=== PATIENT | male | born 1960 | race Asian ===

== ENCOUNTER 2022-09-10 08:14 | Emergency (ER) | payer MEDICAID ==
[~2022-09-10] VITALS: Ht 180.3 cm; Wt 99.8 kg
--- NOTE | 2022-09-10 08:14 | NUR ---
BROUGHT BACK TO BED #4 AND TRIAGED. WILL ASSUME CARE
[2022-09-10 08:15] VITALS: BP_SYST 151
[2022-09-10] MEDS ORDERED: MORPHINE 4 MG INJ. 4 MG/ML VIAL IVP ONE (08:30)
[2022-09-10] MEDS ORDERED: NITROGLYCERIN 1 INCH (GM) OINT. TP ONE (08:30)
--- NOTE | 2022-09-10 08:30 | NUR ---
PT BIB SON FROM HOME C/O NON RADIATING THROBBING ACHEING CHEST PAIN 12/22 AT 0630 THIS AM. PT DENIES H/V/N. PT STATES NO PRIOR MEDICAL HISTORY. PT RESTING IN BED VSS
--- NOTE | 2022-09-10 08:35 | NUR ---
ER at bedside examining patient.
[2022-09-10] MEDS ORDERED: ASPIRIN 325 MG TABLET PO ONE (08:45)
[2022-09-10 08:58] LABS: BASOPHILS % (AUTO) 0.8 % (0.0-2.0); EOSINOPHILS # (AUTO) 0.2 K/uL (0.0-0.4); EOSINOPHILS % (AUTO) 4.1 % (0.0-4.0); HEMATOCRIT 44.9 % (36-54); HEMOGLOBIN 15.2 g/dL (14.0-18.0); LYMPHOCYTES # (AUTO) 2.5 K/uL (1.0-5.5); LYMPHOCYTES % (AUTO) 44.8 % (20.5-51.5); MEAN CORPUSCULAR HEMOGLOBIN 29 pg (27-31); MEAN CORPUSCULAR HGB CONC 34 % (32-36); MEAN CORPUSCULAR VOLUME 87 fL (79.0-98.0); MONOCYTES # (AUTO) 0.6 K/uL (0.0-1.0); MONOCYTES % (AUTO) 10.1 % (1.7-9.3); NEUTROPHILS # (AUTO) 2.3 K/uL (1.8-7.7); NEUTROPHILS % (AUTO) 40.2 % (40.0-70.0); PLATELET COUNT (AUTO) 273 K/uL (130-430); RED BLOOD CELL COUNT(AUTO) 5.19 MIL/uL (4.2-6.2); RED CELL DISTRIBUTION WIDTH 14.3 % (9.0-15.0); WHITE BLOOD COUNT (AUTO) 5.7 K/uL (4.8-10.8)
[2022-09-10 09:29] LABS: ANION GAP 4 (5-15); CALCIUM 9.4 mg/dL (8.4-11.0); CHLORIDE 101 mmol/L (98-107); CREATININE 1.34 mg/dL (0.55-1.30); GFR AFRICAN AMERICAN 69 mL/min (>90); GLUCOSE 104 mg/dL (70-99); UREA NITROGEN, BLOOD 18 mg/dL (8-21)
[2022-09-10 09:36] LABS: ALANINE AMINOTRANSFERASE 72 U/L (12-78); ALBUMIN 3.8 g/dL (3.4-4.8); ASPARTATE AMINOTRANSFERASE 68 U/L (10-37); PROTHROMBIN TIME 10.4 SECS (9.5-12.5); TOTAL BILIRUBIN 0.5 mg/dL (0.0-1.0)
--- NOTE | 2022-09-10 09:50 | NUR ---
RESTING QUIETLY, NO CHANGES
[2022-09-10] MEDS ORDERED: SIMV-345 PO (10:35)
[2022-09-10] MEDS ORDERED: TELM40TA2 PO (10:42)
[2022-09-10 11:07] VITALS: BP_SYST 152
--- NOTE | 2022-09-10 11:09 | NUR ---
Patient given written and verbal discharge instructions and verbalizes understanding. ER MD discussed with patient the results and treatment provided. Patient in stable condition. ID arm band removed. IV catheter removed intact and dressing applied, no active bleeding. Rx of SIMVASTATIN given. Patient educated on CHEST PAIN OBSERVATION and to follow up with PMD. Pain Scale 4. Opportunity for questions provided and answered. Medication side effect fact sheet provided.
== END 2022-09-10 11:09 | disposition home or self-care (01) ==
LOC: SED 08:14
DX: R07.89 Other chest pain (principal); I10 Essential (primary) hypertension; Z88.0 Allergy status to penicillin; Z79.899 Other long term (current) drug therapy
CPT/HCPCS: 99284; 96374; 71045; 80053; 83880; 85025; 85379; 85610; 85730; 84484; 36415; J2270

== ENCOUNTER 2023-04-28 07:27 | Day surgery (SDC) | payer MEDICAID ==
[~2023-04-28] VITALS: Ht 180.3 cm; Wt 86.2 kg
[~2023-04-28 07:27] MED LIST: SIMV-345 PO; TELM40TA2 PO
[2023-04-28] MEDS ORDERED: MEPERIDINE 100 MG INJ. 100 MG/ML VIAL ONE (11:59)
[2023-04-28] MEDS ORDERED: MIDAZOLAM HCL 5 MG/5 ML VIAL ONE (11:59)
[2023-04-28 14:39] VITALS: O2SAT 100
[2023-04-28 15:17] VITALS: BP_SYST 92; PULSE 60; RESP 14
== END 2023-04-28 13:30 | disposition home or self-care (01) ==
LOC: SDS 07:27 → SMU 07:29 → SDS 13:30
PROVIDERS: ATTEND Internal Medicine Gastroenterology
DX: Z12.11 Encounter for screening for malignant neoplasm of colon (principal); D12.0 Benign neoplasm of cecum; D12.5 Benign neoplasm of sigmoid colon; K64.8 Other hemorrhoids; K21.9 Gastro-esophageal reflux disease without esophagitis; E78.5 Hyperlipidemia, unspecified; Z88.0 Allergy status to penicillin; Z79.899 Other long term (current) drug therapy
CPT/HCPCS: 45385; 88305; 99152; G0378; J2250; J2175